=== PATIENT | male | born 1950 | race Caucasian/White ===

== ENCOUNTER → 2021-03-07 | Outpatient (REF) | payer MEDICARE ==
[2021-03-08 23:10] LABS: PSA % FREE 15.2 % (.); PSA FREE 1.23 ng/mL; PSA TOTAL 8.1 ng/mL (0.0-4.0)
== END ==
LOC: M LAB REF 11:12
PROVIDERS: ATTEND Internal Medicine
DX: R97.20 Elevated prostate specific antigen [PSA] (principal)